=== PATIENT | female | born 1980 | race Caucasian/White ===

== ENCOUNTER → 2016-11-04 | Outpatient (CLI) | payer BC ==
[~2016-11-04] MED LIST: DOCU-94 PO; ENOX40IN SQ; PRENTAB26 PO; SERT50TA PO
[2016-11-04 12:26] LABS: URINE APPEARANCE CLEAR (CLEAR); URINE BILIRUBIN NEG (NEG); URINE COLOR YELLOW; URINE NITRITE NEG (NEG); URINE SPECIFIC GRAVITY 1.001 (1.000-1.030); UROBILINOGEN NEG (NEG)
[2016-11-04 12:30] LABS: MANUAL MICROSCOPIC REQUIRED? NO; REVIEW REQ? NO
== END | disposition home or self-care (01) ==
LOC: C.LABSPEC 11:34
PROVIDERS: ATTEND Obstetrics & Gynecology
DX: O09.529 Supervision of elderly multigravida, unspecified trimester (principal)

== ENCOUNTER → 2016-11-10 | Outpatient (CLI) | payer BC ==
[2016-11-10 11:16] LABS: BASO % 0.9 %; BASO ABS # 0.04 K/uL (0-0.2); COMPLETE YES; HEMATOCRIT 40.9 % (37-47); IG% 0.2 %; LYMPH % 31.3 %; LYMPH ABS # 1.42 K/uL (1.2-3.4); MEAN CELL VOLUME 84.9 fL (80-100); MEAN CORPUSCULAR HEMOGLOBIN 29.9 pg (25-34); MEAN CORPUSCULAR HGB CONC 35.2 g/dl (32-36); MEAN PLATELET VOLUME 9.2 fL (7.4-10.4); MONO % 5.9 %; NEUT % 59.7 %; PLATELET COUNT 244 K/uL (130-400); RED BLOOD COUNT 4.82 M/uL (4.2-5.4); WHITE BLOOD COUNT 4.54 K/uL (4.8-10.8)
[2016-11-13 11:57] LABS: CHLAMYDIA TRACH RNA*** NOT DETECTED (NOT DETECTED); GC (NEIS GONORRHOEAE)RNA** NOT DETECTED (NOT DETECTED)
== END | disposition home or self-care (01) ==
LOC: C.LAB1850 09:57
PROVIDERS: ATTEND Obstetrics & Gynecology
DX: O09.521 Supervision of elderly multigravida, first trimester (principal)

== ENCOUNTER → 2017-01-05 | Outpatient (CLI) | payer BC ==
[2017-01-05 13:57] LABS: GTGD 50 Grams
[2017-01-09 16:11] LABS: AFP CONCENTRATION 22.1 NG/ML; AFP MULTIPLE OF MEDIAN 0.73; AFPTS INSULIN DEP DIABETIC? NO; AFPTS MATERNAL WT 166 LBS; ALPHA-FETOPROTEIN RACE CAUCASIAN=W; EDD DETERMINED BY ULTRASOUND; HISTORY OF NTD NO; REPEAT SAMPLE? NO
== END | disposition home or self-care (01) ==
LOC: C.LAB1850 11:06
PROVIDERS: ATTEND Obstetrics & Gynecology
DX: O09.522 Supervision of elderly multigravida, second trimester (principal); Z3A.00 Weeks of gestation of pregnancy not specified

== ENCOUNTER → 2017-03-27 | Outpatient (CLI) | payer BC ==
[2017-03-27 12:46] LABS: HEMATOCRIT 37.3 % (37-47)
[2017-03-27 13:49] LABS: GTGD 50 Grams
== END | disposition home or self-care (01) ==
LOC: C.LAB1850 11:20
PROVIDERS: ATTEND Obstetrics & Gynecology
DX: O09.523 Supervision of elderly multigravida, third trimester (principal); Z3A.00 Weeks of gestation of pregnancy not specified

== ENCOUNTER → 2017-03-27 | Outpatient (CLI) | payer BC ==
[2017-03-27 14:55] LABS: URINE APPEARANCE CLEAR (CLEAR); URINE BILIRUBIN NEG (NEG); URINE COLOR YELLOW; URINE EPITHELIAL CELL AUTO 0-5 /lpf (0-5); URINE NITRITE NEG (NEG); URINE PH 6.5 (4.5-7.5); UROBILINOGEN NEG (NEG)
[2017-03-27 14:59] LABS: MANUAL MICROSCOPIC REQUIRED? NO; REVIEW REQ? NO
== END | disposition home or self-care (01) ==
LOC: C.LABSPEC 13:57
PROVIDERS: ATTEND Obstetrics & Gynecology
DX: O09.523 Supervision of elderly multigravida, third trimester (principal); Z3A.00 Weeks of gestation of pregnancy not specified

== ENCOUNTER → 2017-05-23 | Outpatient (CLI) | payer BC | END | disposition home or self-care (01) | LOC: C.LABSPEC 16:38 | PROVIDERS: ATTEND Obstetrics & Gynecology | DX: O09.523 Supervision of elderly multigravida, third trimester (principal); Z3A.00 Weeks of gestation of pregnancy not specified ==

== ENCOUNTER 2017-05-28 12:46 | Outpatient (CLI) | payer BC ==
[~2017-05-28 12:46] MED LIST changes: -DOCU-94 PO; -SERT50TA PO
[2017-06-28] MEDS ORDERED: SERT50TA PO (14:12)
[2017-06-28] MEDS ORDERED: ENOX40IN SQ (14:13)
== END 2017-05-28 13:55 | disposition home or self-care (01) ==
LOC: C.LD 12:46 → C.OPB 12:46
PROVIDERS: ATTEND Obstetrics & Gynecology
DX: O26.893 Other specified pregnancy related conditions, third trimester (principal); N89.8 Other specified noninflammatory disorders of vagina; Z3A.37 37 weeks gestation of pregnancy

== ENCOUNTER 2017-06-11 09:27 | Outpatient (CLI) | payer BC ==
[2017-06-12] MEDS ORDERED: DOCU-94 PO (02:50)
[2017-06-28] MEDS ORDERED: SERT50TA PO (14:12)
[2017-06-28] MEDS ORDERED: ENOX40IN SQ (14:13)
== END 2017-06-11 11:55 | disposition home or self-care (01) ==
LOC: C.OPB 09:27 → C.LD 09:27 → C.OPB 11:55
PROVIDERS: ATTEND Obstetrics & Gynecology
DX: O09.523 Supervision of elderly multigravida, third trimester (principal); Z3A.39 39 weeks gestation of pregnancy

== ENCOUNTER 2017-06-12 01:43 | Inpatient (IN) | payer BC ==
[~2017-06-12] VITALS: Ht 160 cm; Wt 86.4 kg
[2017-06-12] MEDS ORDERED: LACTATED RINGER'S 1000ML 1,000 ML IV SCH (02:04)
[2017-06-12] MEDS ORDERED: LACTATED RINGER'S 1000ML 1,000 ML IV PRN (02:04)
[2017-06-12] MEDS ORDERED: BUPIVACAINE 0.25% 30 ML VIAL ONE (02:13)
[2017-06-12] MEDS ORDERED: FENTANYL CITRATE INJ 50 MCG/1 ML 2 ML VIAL ONE (02:14)
[2017-06-12] MEDS ORDERED: FENTANYL 2MCG/ML ROPIV 1.25MG/ML 100ML BAG EPI ONE (02:14)
[2017-06-12] MEDS ORDERED: EpHEDrine SULFATE INJ 50 MG/ML AMP ONE (02:14)
[2017-06-12] MEDS ORDERED: OXYTOCIN 30 UNITS/500ML NSS IV ONE (02:19)
[2017-06-12 02:45] VITALS: Ht 160 cm; Wt 86.4 kg
[2017-06-12] MEDS ORDERED: HYDROCORTISONE ACETATE 25 MG SUPP PR PRN (02:45)
[2017-06-12] MEDS ORDERED: SUPERCREAM 0.870 % 15GM JAR EXT PRN (02:45)
[2017-06-12] MEDS ORDERED: DIPHTHERIA/TETANUS/PERTUSSIS 0.5 ML SYR/VIAL IM. ONE (02:45)
[2017-06-12] MEDS ORDERED: OXYCODONE/ACETAMINOPHEN 5-325 TAB PO PRN (02:45)
[2017-06-12] MEDS ORDERED: OXYTOCIN INJ 10 UNITS/ML VIAL IM ONE (02:45)
[2017-06-12] MEDS ORDERED: BENZOCAINE 20% AER SPR 82.5 GM CAN EXT PRN (02:45)
[2017-06-12] MEDS ORDERED: ACETAMINOPHEN 325 MG TAB PO PRN (02:45)
[2017-06-12] MEDS ORDERED: LANOLIN OINT EXT PRN ×2 (02:45)
[2017-06-12] MEDS ORDERED: OXYTOCIN 30 UNITS/500ML NSS IV PRN (02:45)
[2017-06-12] MEDS ORDERED: DOCU-94 PO (02:50)
--- NOTE | 2017-06-12 03:03 | Progress Note ---
Progress Note Date of Service Jun 12, 2017. Progress Note Patient is Factor V Leiden heterozygote without hx of vte. Her bother and father have both had VTE. She has had prophylactic lovenox after both of her previous pregnancies. She had consult with [facility] hematology and that note was reviewed. The recommendation is only to use lovenox for 6 weeks pp if she has c /s. Patient notes she was told that it was up to her and if she were more comfortable with prophylaxis than could go ahead. This is not mentioned in the note. 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 She would like to have prophylaxis. Lovenox 40mg qam ordered to start on am of 06/13.
[2017-06-12] MEDS: IBUPROFEN 600 MG TAB PO PRN ×3 (03:05→18:23)
[2017-06-12 03:12] LABS: HEMATOCRIT 37.1 % (37-47); MEAN CELL VOLUME 85.3 fL (80-100); MEAN CORPUSCULAR HEMOGLOBIN 29.7 pg (25-34); MEAN CORPUSCULAR HGB CONC 34.8 g/dl (32-36); MEAN PLATELET VOLUME 9.5 fL (7.4-10.4); PLATELET COUNT 208 K/uL (130-400); RED BLOOD COUNT 4.35 M/uL (4.2-5.4); WHITE BLOOD COUNT 8.52 K/uL (4.8-10.8)
[2017-06-12 05:40] VITALS: BP 122/77; PULSE 73; TEMP 37.2; O2SAT 97
[2017-06-12 05:52] LABS: INR 0.9 (0.9-1.1); PROTHROMBIN TIME (PATIENT) 9.6 SECONDS (9.0-12.0)
[2017-06-12 06:14] LABS: CREATININE 0.75 mg/dl (0.60-1.20)
[2017-06-12] MEDS: DOCUSATE SODIUM 100 MG CAP PO SCH ×2 (07:33→19:52)
[2017-06-12] MEDS: PRENATAL VITAMIN TAB PO SCH (07:33)
--- NOTE | 2017-06-12 07:39 | DELIVERY SUMMARY ---
DATE OF OPERATION: 06/12/2017 PREOPERATIVE DIAGNOSES: 1. Intrauterine at 39 1/7 weeks. 2. Active labor. 3. Factor 5 Leiden heterozygote carrier. POSTOPERATIVE DIAGNOSES: 1. Same. 2. Precipitous labor and delivery. 3. Same. PROCEDURES: 1. Normal spontaneous vaginal delivery. 2. Second degree perineal laceration with repair. SURGEON: Dr. Ferguson. ANESTHESIA: Local infiltration of lidocaine to the perineum. ESTIMATED BLOOD LOSS: 300 cc. DETAILS OF PROCEDURE: The patient presented to labor and delivery in active labor at 6 cm and 100% effaced. Just after placing the IV the patient ruptured her bag of water and screamed that she needed to push. She was found to be complete complete and +2 station. She pushed to deliver a viable female intact in AURE presentation. There was no nuchal cord. The anterior shoulder was easily delivered as well as the rest of the body. The baby was vigorous and crying. The nose and mouth were bulb suctioned. The was placed on the maternal abdomen for drying and attention. At 1 minute of life the cord was clamped and cut. Cord blood was obtained. Placenta was delivered spontaneously intact with a 3-vessel cord. Cervix, sulci, and rectum were examined and found to be intact. Second degree perineal laceration was repaired with 3-0 Vicryl in normal standard fashion after infiltrating the perineum with 1% lidocaine without epinephrine. Apgars were 8 and 9. Weight pending. Mother and baby doing well at the end of the delivery. I attest to the content of the Intraoperative Record and any orders documented therein. Any exception s are noted below.
[2017-06-12 07:54] VITALS: BP 132/76; PULSE 64; TEMP 36.5
[2017-06-12 12:00] VITALS: BP 102/66; PULSE 66; TEMP 37
[2017-06-12 16:00] VITALS: BP 126/76; PULSE 67; TEMP 36.9
[2017-06-12 20:25] VITALS: BP 139/86; PULSE 70; TEMP 36.3
[2017-06-12 23:50] VITALS: BP 130/79; PULSE 71; TEMP 36.6; O2SAT 98
[2017-06-13] MEDS: IBUPROFEN 600 MG TAB PO PRN ×3 (00:03→10:11)
[2017-06-13 06:51] LABS: HEMATOCRIT 34.2 % (37-47)
--- NOTE | 2017-06-13 06:55 | Progress Note ---
Subjective Jun 13, 2017. Subjective conversation w/ patient, physical exam, chart review, lab review Ambulation: ambulating normally Voiding: no voiding problems Passing Gas: Yes Diet Tolerance: Regular Diet Lochia: Moderate Feeding Type: Breast Feeding Pain: 2/10 Comment: Pt seen and examined at bedside. Denies acute overnight events. Review of Systems Respiratory: No cough, No shortness of breath Cardiac: No chest pain, No edema, No palpitations Abdomen: + pain (2/10, but Motrin controls 0/10), No nausea, No vomiting, No diarrhea, No constipation Female : No dysuria denies headache Objective Vital Signs Date Time Temp Pulse Resp B/P (MAP) Pulse Ox O2 Delivery O2 Flow Rate FiO2 06/12/17 23:50 98 Room Air 06/12/17 23:50 36.6 71 20 130/79 (96) 98 Room Air 06/12/17 20:25 36.3 70 18 139/86 (103) Room Air 06/12/17 20:25 Room Air 06/12/17 16:00 Room Air 06/12/17 16:00 36.9 67 18 126/76 (93) Room Air 06/12/17 12:00 37.0 66 18 102/66 (78) Room Air 06/12/17 07:54 36.5 64 18 132/76 (94) Room Air 06/12/17 07:35 Room Air Physical Exam General Appearance: WELL-APPEARING, WD/WN, NO APPARENT DISTRESS Respiratory/Chest: chest non-tender, lungs clear, normal breath sounds, no respiratory distress Cardiovascular: regular rate, rhythm, no edema, no gallop, no JVD Abdomen: normal bowel sounds, + pertinent finding (RLQ nodule (s/o hernia) palpated) Fundus: Firm, Tender (appropriately tender) Extremities: normal range of motion, non-tender, normal inspection, no calf tenderness, + pedal edema (trace edema) Laboratory Results Last 24 Hours Test 06/13/17 06:35 Assessment and Plan Post- Day#: 1 Continue Routine Care: Pt is doing well clinically. - VS reviewed and WNL. - Blood type A+/GBS unknown - RLQ nodule (s/o hernia) palpated on PE - follow up in office 6 weeks. - Encourage ambulation, monitor and control pain with Motrin PRN, continue regular diet, monitor lochia - Continue support - Will receive Lovenox injection today, and will be sent home with script - Has h/o post depression with prev pregnancies, will send home with script for 50mg Zoloft per patient request. Resident Physician Supervision Note: I was present with Dr. Rogers during the history and exam. I discussed the case with the resident and agree with the findings and plan as documented in the note. Any exceptions or clarifications are listed here: PPD#1 doing well. Rx lovenox 40mg SQ QD x 6 weeks, patient also requesting Rx zoloft - took this after previous deliveries and also was taking prior to this . Discussed s/s depression, she is to be seen if symptoms develop. Denies suicidal/homicidal/infanticidal ideation - feeling well now, just wants to be proactive. Discharge to home today. Documented By: Marcelina Crow Resident Tracking Resident Involvement: Resident Care Provided Care Provided: Adult Hospital Medicine
[2017-06-13] MEDS ORDERED: ENOXAPARIN 40 MG/0.4 ML SYR SQ SCH (08:00)
[2017-06-13] MEDS: DOCUSATE SODIUM 100 MG CAP PO SCH (08:02)
[2017-06-13] MEDS: PRENATAL VITAMIN TAB PO SCH (08:02)
[2017-06-13 08:05] VITALS: BP 126/82; PULSE 63; TEMP 36.8
--- NOTE | 2017-06-13 08:14 | Discharge Instructions ---
Discharge Instructions Date of Service Jun 13, 2017. Admission Reason for Admission: Factor 5 Leiden Mutation,Heterozygous,Normal Labor Discharge Discharge Diagnosis / Problem: Factor 5 Leiden mutation, heterozygous, Normal labor Discharge Goals Goal(s): Routine recovery after delivery Activity Recommendations Activity Limitations: as noted below . Instructions / Follow-Up Instructions / Follow-Up ACTIVITY RECOMMENDATIONS: * Gradual return to full activity over the next 2-3 weeks. * No lifting - nothing heavier than baby over the next 2-3 weeks. * Do not engage in vigorous exercise, sexual activity or sports until cleared by your physician. * Do not drive or operate any motorized equipment until cleared by your physician. * You may shower/bathe daily. MEDICATIONS: For discomfort or pain, you may use Acetaminophen (Tylenol), Ibuprofen (Advil), or Naproxen (Aleve) following the package directions. For constipation you may use Colace following the package directions. BREAST CARE: If you are not breast feeding: * Wear a supportive bra 24 hours a day for one to two weeks. * Avoid stimulating your breasts and nipples as much as possible during the first few weeks after delivery. * When taking a shower, have the warm water hit your back, not breasts. * When your breasts feel full, apply ice packs. Usually three to four times a day helps ease the discomfort. * Take a mild pain medication (Tylenol / Motrin) when you are uncomfortable. If breast feeding: * Use breast milk to lubricate nipples. Lansinoh cream may be used for sore nipples. You do not need to remove cream prior to breast feeding. If using a different brand of cream, check the label for directions regarding removal of cream prior to nursing. * Wear a supportive bra. * If having problems with breasts or breast feeding, call a risk consultant or your health care provider. EPISIOTOMY CARE: After delivery, if you have an episiotomy (stitches), the following steps will ease discomfort and aid healing. * For the first 24 hours after delivery, place ice packs next to your episiotomy to help reduce swelling. * After the first 24 hour-period, sitz baths, either portable or in the tub, are suggested. A shower with a shower arm sprayed over the episiotomy may be comforting. * Marilou care should be done after each voiding and bowel movement. Squirt warm water from a plastic bottle over the perineum (region of the body between the anus and urinary opening) and pat dry. * Use Dermoplast to ease discomfort. Shake container. [place] directly over the episiotomy. Place a Tucks on a clean sanitary pad next to your episiotomy. SPECIAL CARE INSTRUCTIONS: When you are discharged from the hospital, it is important for you to follow the instructions listed below: * During the first week at home, you should be able to care for yourself and your baby. In addition, the usual light household activities are encouraged. * Limit your activities to the way you feel. Do not try to clean the house or move furniture. Be sensible. * If you actively engage in sports and have done so up until the time of your delivery, you may resume these activities as soon as you feel able. This may take up to one month or even longer. Use good judgment. * Continue to take your vitamins for at least six weeks after the of your baby. * Your diet need not be limited unless you were on a special diet before your delivery. Breast-feeding mothers need around 2500 calories per day and at least 64-80 ounces of fluid per day (8 to 10 glasses). * You should eat foods from the four major food groups. Crash diets or fad diets are to be avoided. Eating lean meats, fresh fruits and vegetables, low-fat dairy products, high fiber foods and a regular exercise program, will help you get back to your pre- weight without putting your health at risk. * Constipation is sometimes a problem after delivery. Take a mild laxative as needed. If breast feeding, Milk of Magnesia is acceptable to use. You may use a suppository or Fleets enema if no episiotomy. * A daily shower or tub bath is suggested. Be sure to thoroughly and gently dry the perineum. * A bloody vaginal discharge will usually continue until around four weeks post . A small amount of bleeding may continue for as long as six weeks. Vaginal discharge changes from the bright red bleeding after delivery to pink then brownish and finally yellowish-pink before becoming white and disappearing. * Bleeding may increase with activity. Your first period may come in 4-8 weeks. If you are breast feeding, your period may be delayed even longer. * [place] (sex) can begin whenever both you and your partner feel comfortable and do not have any form of genital infection. It is recommended that you wait at least six weeks for internal and external healing to occur. If you have questions, please talk to your health care practitioner. A condom should be used to prevent infection and . * Foreplay, gentle intercourse and lubrication is very important the first several times to prevent pain. A water-based lubricant such as K-Y jelly or Astroglide may be used. * If you have RH negative blood and your baby is RH positive, you will receive RHOGAM by injection prior to discharge. The nurse will give you a card to keep with you that has the date and place that you received RHOGAM after delivery. * During your care, you had a Rubella screen done to check for the presence of rubella antibodies in your blood. If your test was negative, you will receive a Rubella vaccine prior to discharge. This vaccine may cause a fever, soreness at the injection site and flu-like symptoms. If these symptoms persist, notify your health care practitioner. is not advised for one month after a Rubella vaccine. * Verbalizes understanding of car seat law as reviewed with patient nursing. * Car Seat hand-out given and reviewed with patient by nursing. * Shaken baby information reviewed with patient by nursing. Call you doctor if: * Heavy bleeding (saturating several pads an hour) or passing clots the size of your fist. * A fever >101 degrees F (38.3 degrees C) on two occasions four hours apart and /or chills. * Unusual pain in the pelvic or vaginal areas. * "Baby Blues" lasting longer than two weeks. If you have any questions or concerns, call your health care practitioner at . FOLLOW UP VISIT: * Please call the office at to schedule a 6 week examination. It is important you keep this appointment. It is important for you to make arrangements for either yearly or twice yearly check-ups thereafter. Current Hospital Diet Patient's current hospital diet: Regular OB Diet Discharge Diet Recommended Diet: Regular Diet Pending Studies Studies pending at discharge: no Medical Emergencies . Who to Call and When: Medical Emergencies: If at any time you feel your situation is an emergency, please call 911 immediately. . Non-Emergent Contact Non-Emergency issues call your: Primary Care Provider . . "Provider Documentation" section prepared by Arianna Rogers. . VTE Core Measure Inpt VTE Proph given/why not?: Enoxaparin (Lovenox)SQ, SCD's
[2017-06-13] MEDS ORDERED: ENOX40IN SQ (08:32)
[2017-06-13] MEDS ORDERED: SERT50TA PO (08:32)
[2017-06-13 10:13] VITALS: BP_DIAS 82; PULSE 63; TEMP 36.8
[2017-06-28] MEDS ORDERED: SERT50TA PO (14:12)
[2017-06-28] MEDS ORDERED: ENOX40IN SQ (14:13)
== END 2017-06-13 11:00 | disposition home or self-care (01) | DRG 775 ==
LOC: C.LD 01:43 → C.OPB 01:43 → C.LD 02:06 → C.OBG 05:30
PROVIDERS: ADMIT Obstetrics & Gynecology; ATTEND Obstetrics & Gynecology
PROC: 0KQM0ZZ Repair Perineum Muscle, Open Approach (ICD-10-PCS; principal; 2017-06-12)
PROC: 10E0XZZ Delivery of Products of Conception, External Approach (ICD-10-PCS; principal; 2017-06-12)
DX: O62.3 Precipitate labor (principal); O99.12 Other diseases of the blood and blood-forming organs and certain disorders involving the immune mechanism complicating childbirth; D68.51 Activated protein C resistance; O70.1 Second degree perineal laceration during delivery; Z3A.39 39 weeks gestation of pregnancy; Z37.0 Single live birth

== ENCOUNTER → 2017-06-23 | Outpatient (CLI) | payer BC ==
[~2017-06-23] MED LIST changes: +DOCU-94 PO; +SERT50TA PO
== END | disposition home or self-care (01) ==
LOC: C.PATH 08:24
PROVIDERS: ATTEND Internal Medicine
DX: R59.9 Enlarged lymph nodes, unspecified (principal)

== ENCOUNTER → 2017-06-28 | Outpatient (CLI) | payer BC ==
[2017-06-28 14:07] LABS: BASO % 0.3 %; BASO ABS # 0.02 K/uL (0-0.2); COMPLETE YES; EOS % 0.6 %; HEMATOCRIT 39.7 % (37-47); IG% 0.3 %; LYMPH % 23.5 %; LYMPH ABS # 1.53 K/uL (1.2-3.4); MEAN CELL VOLUME 84.6 fL (80-100); MEAN CORPUSCULAR HEMOGLOBIN 30.1 pg (25-34); MEAN CORPUSCULAR HGB CONC 35.5 g/dl (32-36); MEAN PLATELET VOLUME 8.6 fL (7.4-10.4); MONO % 6.3 %; PLATELET COUNT 303 K/uL (130-400); RED BLOOD COUNT 4.69 M/uL (4.2-5.4)
[2017-06-28 14:35] LABS: BLOOD UREA NITROGEN 8 mg/dl (7-18); BUN/CREATININE RATIO 13.5 (10-20); CARBON DIOXIDE 25 mmol/L (21-32); CHLORIDE 99 mmol/L (98-107); CREATININE 0.62 mg/dl (0.60-1.20); GLUCOSE 78 mg/dl (70-99); POTASSIUM 3.8 mmol/L (3.5-5.1); SODIUM 131 mmol/L (136-145)
== END | disposition home or self-care (01) ==
LOC: C.LAB1850 12:52
PROVIDERS: ATTEND Surgery
DX: Z01.812 Encounter for preprocedural laboratory examination (principal); R59.9 Enlarged lymph nodes, unspecified

== ENCOUNTER 2017-06-29 10:40 | Day surgery (SDC) | payer BC ==
[2017-06-28 14:14] VITALS: BMI 29.0
[~2017-06-29] VITALS: Ht 160 cm; Wt 76.4 kg
[~2017-06-29 10:40] MED LIST changes: +ATROPINE SULFATE 0.1 MG/ML 5ML SYR IV PRN; +EpHEDrine SULFATE INJ 50 MG/ML AMP IV PRN; +FENTANYL CITRATE INJ 50 MCG/1 ML 2 ML VIAL IV PRN; +HYDROmorphone INJ 1 MG/ML SYR IV PRN; +LACTATED RINGER'S 1000ML 1,000 ML IV SCH; +ONDANSETRON INJ 2 MG/ML 2 ML VIAL IV PRN
[2017-06-29 10:59] VITALS: BP 132/84; PULSE 74; TEMP 37; O2SAT 99; Ht 160 cm; Wt 76.4 kg
[2017-06-29] MEDS ORDERED: EpHEDrine SULFATE INJ 50 MG/ML AMP IV PRN (12:45)
[2017-06-29] MEDS ORDERED: ONDANSETRON INJ 2 MG/ML 2 ML VIAL IV PRN ×2 (12:45→14:00)
[2017-06-29] MEDS ORDERED: PROPOFOL IV EMULSION 10 MG/ML 20 ML VIAL IV ONE ×2 (12:46→13:20)
[2017-06-29] MEDS ORDERED: ACETAMINOPHEN 1000 MG/100 ML IV IV ONE (12:46)
[2017-06-29] MEDS ORDERED: BUPIVACAINE 0.5 % 5 MG/1 ML MPF 30ML VIAL ONE (12:54)
[2017-06-29] MEDS ORDERED: ATROPINE SULFATE 0.1 MG/ML 5ML SYR IV PRN (13:00)
--- NOTE | 2017-06-29 13:02 | History & Physical Bridge Note ---
H&P Re-Evaluation Bridge Note: I have examined the patient, reviewed the History & Physical and in the interval since the performance of the History & Physical I have noted the following changes of clinical significance: No changes noted pt marked
[2017-06-29] MEDS ORDERED: SURGICEL ABSORB HEMOSTAT 2IN X 14IN TOP ONE (13:46)
[2017-06-29] MEDS ORDERED: SODIUM CHLORIDE 0.9% 1000ML 1,000 ML IV SCH (14:00)
--- NOTE | 2017-06-29 14:03 | [facility] Operative Report ---
Operative Report Operative Date Jun 29, 2017. Pre-Operative Diagnosis enlarged right groin lymph node Post-Operative Diagnosis enlarged right groin lymph node Procedure(s) Performed Right Groin Lymph Node Incisional Biopsy with Frozen Section Surgeon Dr. Reich Lab Courier Surgeon(s) Gina Prince PA-C Estimated Blood Loss 2ml Findings as preop Specimens Frozen Specimen: 1.) Right Groin Lymph Node. Sent out of OR to lab by Dr. Dandy Reich at [id number]. Indications r/o pathology Description of Procedure or summary dictated [id number] I attest to the content of the Intraoperative Record and any orders documented therein. Any exceptions are noted below.
--- NOTE | 2017-06-29 14:07 | Discharge Instructions ---
Discharge Instructions Date of Service Jun 29, 2017. Admission Reason for Admission: Enlarged Lymph Node, Factor V Leiden Mutation Discharge Discharge Diagnosis / Problem: Enlarged Lymph Node, Factor V Leiden Mutation Discharge Goals Goal(s): Decrease discomfort, Learn about illness Activity Recommendations Activity Limitations: as noted below Lifting Limitations: gradually increase as tolerated Exercise/Sports Limitations: gradually increase as tolerated May Resume Sexual Activity: when tolerated Shower/Bathe: tomorrow Driving or Machine Use: resume 1 day after discharge . Instructions / Follow-Up Instructions / Follow-Up You have dissolvable sutures that do not need to be removed. On top of your incision you have steri-strips. Please leave the steri-strips on until they fall off. You may shower tomorrow AM. Please follow-up with Dr. Reich in the office in 1 week. Please call the office at [phone] to make an appointment if you do not have one already. Current Hospital Diet Patient's current hospital diet: Discharge Diet Recommended Diet: Regular Diet Procedures Procedures Performed: Right Groin Lymph Node Incisional Biopsy with Frozen Section Pending Studies Studies pending at discharge: yes List of pending studies: Pathology report. Medical Emergencies . Who to Call and When: Medical Emergencies: If at any time you feel your situation is an emergency, please call 911 immediately. . Non-Emergent Contact Non-Emergency issues call your: Primary Care Provider, Surgeon Call Non-Emergent contact if: temperature is above 101.5, your pain is not controlled, wound has increased drainage, wound has increased redness . "Provider Documentation" section prepared by Gina Prince. . VTE Core Measure Inpt VTE Proph given/why not?: SCD's
--- NOTE | 2017-06-29 14:13 | Anesthesiology Progress Note ---
Anesthesia Post Op Note Date & Time Jun 29, 2017 at 14:13 Vital Signs Pain Intensity: 2 Vital Signs Past 12 Hours Date Time Temp Pulse Resp B/P (MAP) Pulse Ox O2 Delivery O2 Flow Rate FiO2 06/29/17 14:05 65 18 139/91 99 Nasal Cannula 2 06/29/17 13:57 36.5 59 16 152/89 98 Nasal Cannula 2 06/29/17 10:59 37.0 74 20 132/84 (100) 99 Room Air Notes Mental Status: alert / awake / arousable, participated in evaluation Pt Amnestic to Procedure: Yes Nausea / Vomiting: adequately controlled Pain: adequately controlled Airway Patency, RR, SpO2: stable & adequate BP & HR: stable & adequate Hydration State: stable & adequate Anesthetic Complications: no major complications apparent
[2017-06-29 14:20] VITALS: BP 130/86; PULSE 65; TEMP 36.9; O2SAT 98
--- NOTE | 2017-06-29 14:30 | OPERATIVE REPORT ---
DATE OF OPERATION: 06/29/2017 PREOPERATIVE DIAGNOSIS: Enlarged right groin node. POSTOPERATIVE DIAGNOSIS: Same by frozen section, reactive for neoplastic. PROCEDURE: Incisional biopsy of right groin node. SURGEON: Dr. Reich. REPLANTING MACHINE OPERATOR: Gina Prince PA-C. SUMMARY: The patient was brought into the operating room and the right groin area was prepped with Betadine solution and properly draped. Marcaine 0.5% without epinephrine was used to infiltrate just about the groin crease in the area about 1.5 long, deepened through subcutaneous tissue. After achieving hemostatic level, an incision was made, deepened through then dissected down and actually we were below the inguinal ligament there where we identified the patient had an obvious enlarged lymph node. It was more of a chain of lymph node but 1 lymph node that was more prominent that we could appreciate right underneath the ligament was about a 1.5 cm in size. We divided the attachments to it as much as possible ligating with 2-0 silk and actually I wanted to get as much as possible, but it did not come out intact. Therefore, we had multiple significant chunks of this node that we placed on telfa patch that we sent for frozen section. The area was then checked for hemostasis and appeared satisfactory. We placed some Surgicel in place and then closed the subcutaneous tissue with 2-0 Dexon suture. The physician contract administrative assistant continued closing the skin edges with 4-0 Monocryl as I took the specimen to pathology. The frozen section report revealed that we had enough tissue and this was reactive versus neoplastic but would have to wait for flow studies. The patient's incision was then further reinforced with Steri-Strips, 2 x 2 and Op-Site and was taken to recovery room in good condition. I attest to the content of the Intraoperative Record and any orders documented therein. Any exceptions are noted below. MTDD
[2017-06-29 14:50] VITALS: BP 130/78; PULSE 71; O2SAT 99
== END 2017-06-29 14:55 | disposition home or self-care (01) ==
LOC: C.ACU 10:40
PROVIDERS: ATTEND Surgery
DX: R59.0 Localized enlarged lymph nodes (principal); E78.5 Hyperlipidemia, unspecified; D68.51 Activated protein C resistance; F32.9 Major depressive disorder, single episode, unspecified; Z79.899 Other long term (current) drug therapy

== ENCOUNTER → 2017-08-01 | Outpatient (CLI) | payer BC ==
[~2017-08-01] MED LIST changes: -ATROPINE SULFATE 0.1 MG/ML 5ML SYR IV PRN; -EpHEDrine SULFATE INJ 50 MG/ML AMP IV PRN; -FENTANYL CITRATE INJ 50 MCG/1 ML 2 ML VIAL IV PRN; -HYDROmorphone INJ 1 MG/ML SYR IV PRN; -LACTATED RINGER'S 1000ML 1,000 ML IV SCH; -ONDANSETRON INJ 2 MG/ML 2 ML VIAL IV PRN
== END | disposition home or self-care (01) ==
LOC: C.PAPS 09:52
PROVIDERS: ATTEND Obstetrics & Gynecology
DX: Z01.419 Encounter for gynecological examination (general) (routine) without abnormal findings (principal)